=== PATIENT | female | born 1985 | race Caucasian/White ===

== ENCOUNTER 2017-01-22 19:24 | Emergency (ER) | payer OTHER ==
[~2017-01-22] VITALS: Ht 175.3 cm; Wt 75.3 kg
[2017-01-22 19:26] VITALS: TEMP 36.7; Ht 175.3 cm; Wt 75.3 kg
[2017-01-22] MEDS ORDERED: SODIUM CHLORIDE 0.9% 1000ML 1,000 ML IV STA ×2 (19:45→21:43)
--- NOTE | 2017-01-22 19:58 | EMERGENCY ROOM VISIT NOTE ---
History Report prepared by Julian: Rigoberto Young Under the Supervision of: Dr. Lisbet Collins D.O. First contact with patient: 19:29 Chief Complaint: ABDOMINAL PAIN Stated Complaint: VOMTING,NAUSEA,LOWER ABD PAIN, DIZZY 19 WEEKS PREG History of Present Illness The patient is a 31 year old female who presents to the Emergency Room with complaints of worsening dizziness that began a week ago. She rates her discomfort as a 3/10 in severity. She admits that her dizziness is relieved with drinking water. The patient states that she also experienced right lower abdominal quadrant pain starting yesterday. She reports that her abdominal pain is worse with movement, dull, and radiates to her back. She reports that she called her nurse at her [employer] office who told her it was most likely due to ligament issues. The patient states that today her dizziness worsened and she also started to experience a near syncopal episode at 0900. She reports that this caused her to report to the ED. She states that she is currently 19.5 weeks and has been experiencing vomiting since her 6th week of . The patient states that her morning sickness is typically at night. She states that within the last week, her morning sickness has been in the morning, as well. The patient reports that she has been able to take her vitamins in the morning, but does not remember if she has taken her pill today. She reports that she believes her dizziness is due to dehydration since she has been vomiting every night. The patient reports that due to her vomiting, she has lost 15 pounds since her . The patient states that she has tried Unisom, B6, and miriam for her nausea, but denies any relief of symptoms. She reports that she was given Zofran, which did not relieve her symptoms, and then Diclegis. The patient states that the Diclegis causes fatigue , which causes her to only take it at night. She reports that if the Diclegis does not work, her [employer] suggests that she is hospitalized. The patient admits that this is her first . She states that her first ultrasound in January 31. The patient admits that she started to feel movement in the last week. She reports that her [employer] is at [facility]. The patient denies any vaginal bleeding or discharge, urinary symptoms, bowel issues, fevers, chills, cough, and cold symptoms. Source of History: patient Onset: 0900 Position: abdomen (RLQ) Symptom Intensity: 310 Timing: worsening Modifying Factors (Relieving): drinking Associated Symptoms: + nausea, + vomiting, + abdominal pain, + back pain, No fevers, No chills, No cough, No urinary symptoms Review of Systems See HPI for pertinent positives & negatives. A total of 10 systems reviewed and were otherwise negative. Past Medical & Surgical Medical Problems: (1) 19 weeks gestation of Family History Patient reports no known family medical history. Social History Smoking Status: Never Smoker Smokeless Tobacco Use: No Alcohol Use: none Drug Use: none Marital Status: Housing Status: lives with significant other Occupation Status: employed Current/Historical Medications Scheduled Metoclopramide Hcl (Reglan), 10 MG PO Q8 Multivit/Min/Iron/Fol Ac/Pren ( Vitamin), 1 TAB PO DAILY Allergies Coded Allergies: No Known Allergies (Unverified , 01/22/17) Physical Exam Vital Signs Date Time Temp Pulse Resp B/P (MAP) Pulse Ox O2 Delivery O2 Flow Rate FiO2 01/22/17 23:23 82 20 113/66 98 01/22/17 22:04 70 18 107/60 99 Room Air 01/22/17 20:46 70 18 113/66 97 Room Air 01/22/17 19:26 36.7 79 16 120/86 98 Room Air Physical Exam GENERAL: alert, well appearing, well nourished, no distress, non-toxic EYE EXAM: normal conjunctiva, PERRL and EOM's grossly intact OROPHARYNX: no exudate, no erythema, lips, buccal mucosa, and tongue normal and mucous membranes are moist NECK: supple, no nuchal rigidity, no adenopathy, non-tender LUNGS: Clear to auscultation. Normal chest wall mechanics HEART: no murmurs, S1 normal and S2 normal ABDOMEN: abdomen soft, bilateral lower quadrant tenderness, right greater than left. Fundus palpable just below the umbilicus, normo-active bowel sounds, no masses, no rebound or guarding. BACK: Back is symmetrical on inspection and there is no deformity, no midline tenderness, no CVA tenderness. SKIN: no rashes and no bruising UPPER EXTREMITIES: upper extremities are grossly normal. LOWER EXTREMITIES: No pitting edema. NEURO EXAM: Normal sensorium, cranial nerves II-XII grossly intact, normal speech, no gross weakness of arms, no gross weakness of legs. Gross sensation intact. Medical Decision & Procedures ER Provider Diagnostic Interpretation: Radiology results have been interpreted by the radiologist and reviewed by me. ULTRASOUND LIMITED CLINICAL HISTORY: Generalized abdominal pain. Dizziness. Reportedly 19 weeks . COMPARISON STUDY: No priors. FINDINGS: Real-time, grayscale, and color Doppler sonography of the fetus and gravid uterus is performed. There is a single live intrauterine gestation with an estimated heart rate of 157 bpm. The femoral length measures 3.01 cm, corresponding to an estimated age of 19 weeks 2 days. The placenta appears posterolateral and is normal in appearance. The amniotic fluid index measures 17.15 cm. Presentation was variable during the examination. There is a 1.6 cm hypoechoic focus seen posterior to the placenta, possibly resenting a small fibroid. This did not change in appearance during the examination. IMPRESSION: 1. There is a single live uterine gestation with an estimated age of 19 weeks 2 days by femoral length measurement. 2. There is a 1.6 cm hypoechoic structure posterior to the placenta, possibly resulting a fibroid. Follow-up the patient's client services representative is recommended. 3. Note that this does not constitute a dedicated anatomic scan. Electronically signed by: Alin Chavez M.D. 01/22/2017 10:01 PM Dictated Date/Time: 01/22/2017 9:20 PM Laboratory Results 01/22/17 20:14 Red Blood Count 3.99, Mean Corpuscular Volume 89.0, Mean Corpuscular Hemoglobin 31.6, Mean Corpuscular Hemoglobin Concent 35.5, Mean Platelet Volume 10.3, Neutrophils (%) (Auto) 73.5, Lymphocytes (%) (Auto) 19.9, Monocytes (%) (Auto) 5.7, Eosinophils (%) (Auto) 0.3, Basophils (%) (Auto) 0.1, Neutrophils # (Auto) 8.58, Lymphocytes # (Auto) 2.32, Monocytes # (Auto) 0.67, Eosinophils # (Auto) 0.04, Basophils # (Auto) 0.01 01/22/17 20:14 Test 01/22/17 20:14 White Blood Count 11.68 K/uL (4.8-10.8) Red Blood Count 3.99 M/uL (4.2-5.4) Hemoglobin 12.6 g/dL (12.0-16.0) Hematocrit 35.5 % (37-47) Mean Corpuscular Volume 89.0 fL (80-100) Mean Corpuscular Hemoglobin 31.6 pg (25-34) Mean Corpuscular Hemoglobin Concent 35.5 g/dl (32-36) Platelet Count 242 K/uL (130-400) Mean Platelet Volume 10.3 fL (7.4-10.4) Neutrophils (%) (Auto) 73.5 % Lymphocytes (%) (Auto) 19.9 % Monocytes (%) (Auto) 5.7 % Eosinophils (%) (Auto) 0.3 % Basophils (%) (Auto) 0.1 % Neutrophils # (Auto) 8.58 K/uL (1.4-6.5) Lymphocytes # (Auto) 2.32 K/uL (1.2-3.4) Monocytes # (Auto) 0.67 K/uL (0.11-0.59) Eosinophils # (Auto) 0.04 K/uL (0-0.5) Basophils # (Auto) 0.01 K/uL (0-0.2) RDW Standard Deviation 41.8 fL (36.4-46.3) RDW Coefficient of Variation 13.0 % (11.5-14.5) Immature Granulocyte % (Auto) 0.5 % Immature Granulocyte # (Auto) 0.06 K/uL (0.00-0.02) Urine Color DK YELLOW Urine Appearance CLOUDY (CLEAR) Urine pH 5.0 (4.5-7.5) Urine Specific [place] 1.035 (1.000-1.030) Urine Protein TRACE (NEG) Urine Glucose (UA) NEG (NEG) Urine Ketones 1+ (NEG) Urine Occult Blood NEG (NEG) Urine Nitrite NEG (NEG) Urine Bilirubin NEG (NEG) Urine Urobilinogen NEG (NEG) Urine Leukocyte Esterase MODERATE (NEG) Urine WBC (Auto) >30 /hpf (0-5) Urine RBC (Auto) 10-30 /hpf (0-4) Urine Hyaline Casts (Auto) 0 /lpf (0-5) Urine Epithelial Cells (Auto) >30 /lpf (0-5) Urine Bacteria (Auto) 1+ (NEG) Urine Crystals CALCIUM OXALATE (NONE Urine Pathogenic Casts /lpf (0) Anion Gap 9.0 mmol/L (3-11) Est Creatinine Clear Calc Drug Dose 121.8 ml/min Estimated GFR () 133.8 Estimated GFR (Non- 115.5 BUN/Creatinine Ratio 13.0 (10-20) Calcium Level 9.6 mg/dl (8.5-10.1) Magnesium Level 2.0 mg/dl (1.8-2.4) Total Bilirubin 0.4 mg/dl (0.2-1) Aspartate Amino Transf (AST/SGOT) 16 U/L (15-37) Alanine Aminotransferase (ALT/SGPT) 24 U/L (12-78) Alkaline Phosphatase 49 U/L (45-117) Total Protein 7.4 gm/dl (6.4-8.2) Albumin 3.3 gm/dl (3.4-5.0) Globulin 4.1 gm/dl (2.5-4.0) Albumin/Globulin Ratio 0.8 (0.9-2) Date/Time Source Procedure Growth Status 01/22/17 20:14 Urine , Clean Catch Urine Culture - Final THREE TYPES OF ORGANISMS PRESENT, ALL... Complete Laboratory results per my review. Medications Administered Medications (Trade) Dose Ordered Sig/Emily Route Start Time Stop Time Status Last Admin Dose Admin Sodium Chloride 1,000 ml @ 999 mls/hr Q1H1M STAT IV 01/22/17 19:45 01/22/17 20:45 DC 01/22/17 20:15 999 MLS/HR Metoclopramide HCl (Reglan Inj) 10 mg NOW STAT IV 01/22/17 20:10 01/22/17 20:11 DC 01/22/17 20:24 10 MG Diphenhydramine HCl (Benadryl Inj) 12.5 mg NOW STAT IV 01/22/17 20:10 01/22/17 20:11 DC 01/22/17 20:24 12.5 MG Sodium Chloride 1,000 ml @ 999 mls/hr Q1H1M STAT IV 01/22/17 21:43 01/22/17 22:43 DC 01/22/17 22:03 999 MLS/HR ED Course 7: The patient was evaluated in room B05. A complete history and physical exam was performed. 1944: Ordered Sodium Chloride 1000 ml @ 999 mls/hr IV. 2009: Ordered Benadryl Injection 12.5 mg IV, Reglan Injection 10 mg IV. 2142: Ordered Sodium Chloride 1000 ml @ 999 mls/hr IV. 2204: I reevaluated the patient and she reports she is feeling better. She requested food. Her fluids are hanging. 2241: I reevaluated the patient and she is feeling better. She is at the end of her second liter. 2300: I reevaluated the patient and she feels better. She at a whole sandwich. I discussed her results and treatment plan. She agrees to the plan. The patient is ready for discharge. Medical Decision The differential diagnosis includes etiologies such as: dehydration, hyperemesis gravidum, gastroenteritis, UTI, appendicitis, biliary colic, gastritis, and GERD. Pt markedly improved with IVF here, tolerated po. Mild leukocytosis likely related to , doubt occult infectious etiology. Urine sent for culture , suboptimal specimen and no symptoms. Lower abd pain b/l likely related to ligament stretching with , low suspicion for appy, colitis, diverticulitis, stone. Pain intermittent and not consistent with other etiology. Discussed with pt all results, f/u with book agent, anti-emetics, hydration, sx to watch/return for, she verbalized understanding and was agreeable with plan. Medication Reconcilliation Current Medication List: was personally reviewed by me Blood Pressure Screening Patient's blood pressure: Normal blood pressure Impression Primary Impression: 19 weeks gestation of Additional Impressions: Nausea & vomiting Dehydration Scribe Attestation The scribe's documentation has been prepared under my direction and personally reviewed by me in its entirety. I confirm that the note above accurately reflects all work, treatment, procedures, and medical decision making performed by me. Departure Information Dispostion Home / Self-Care Prescriptions Metoclopramide Hcl (REGLAN) 10 Mg Tab 10 MG PO Q8 for Nausea, #30 TAB Prov: Lisbet Collins DO 01/22/17 Forms Call Back Authorization, HOME CARE DOCUMENTATION FORM, IMPORTANT VISIT INFORMATION Patient Instructions My [facility] Additional Instructions Please use the nausea medicine as needed up to every 6 hours. Please try to stay well hydrated. Please follow-up with your book agent. If you have any recurrent vomiting, develop fevers, diarrhea, worsening abdominal pain, vaginal bleeding or discharge, or you have any other new or concerning symptoms, please return to the emergency room. Problem Qualifiers Additional Impressions: Nausea & vomiting Vomiting type: unspecified Vomiting Intractability: unspecified Qualified Codes: R11.2 - Nausea with vomiting, unspecified
[2017-01-22] MEDS ORDERED: METOCLOPRAMIDE HCL INJ 5 MG/ML 2 ML VIAL IV STA (20:10)
[2017-01-22] MEDS ORDERED: DiphenhydrAMINE HCL 50 MG/ML VIAL IV STA (20:10)
[2017-01-22] MEDS ORDERED: PRENTAB26 PO (20:20)
[2017-01-22 20:28] LABS: HEMATOCRIT 35.5 % (37-47); MEAN CORPUSCULAR HEMOGLOBIN 31.6 pg (25-34); MEAN CORPUSCULAR HGB CONC 35.5 g/dl (32-36); MEAN PLATELET VOLUME 10.3 fL (7.4-10.4); PLATELET COUNT 242 K/uL (130-400); RED BLOOD COUNT 3.99 M/uL (4.2-5.4); WHITE BLOOD COUNT 11.68 K/uL (4.8-10.8)
[2017-01-22 20:32] LABS: URINE APPEARANCE CLOUDY (CLEAR); URINE BILIRUBIN NEG (NEG); URINE COLOR DK YELLOW; URINE EPITHELIAL CELL AUTO >30 /lpf (0-5); URINE NITRITE NEG (NEG); URINE SPECIFIC GRAVITY 1.035 (1.000-1.030); UROBILINOGEN NEG (NEG); ZZUR CULT IF INDIC CLEAN CATCH YES
[2017-01-22 20:35] LABS: MANUAL MICROSCOPIC REQUIRED? NO; REVIEW REQ? YES
[2017-01-22 20:48] LABS: CALCIUM 9.6 mg/dl (8.5-10.1); CREATININE 0.7 mg/dl (0.60-1.20); POTASSIUM 3.7 mmol/L (3.5-5.1)
[2017-01-22 20:51] LABS: ALB/GLOB RATIO 0.8 (0.9-2)
[2017-01-22 20:52] LABS: BASO % 0.1 %; BASO ABS # 0.01 K/uL (0-0.2); COMPLETE YES; EOS % 0.3 %; IG% 0.5 %; LYMPH % 19.9 %; LYMPH ABS # 2.32 K/uL (1.2-3.4); MONO % 5.7 %; NEUT % 73.5 %
--- NOTE | 2017-01-22 22:02 | DIAGNOSTIC IMAGING REPORT ---
ULTRASOUND LIMITED CLINICAL HISTORY: Generalized abdominal pain. Dizziness. Reportedly 19 weeks . COMPARISON STUDY: No priors. FINDINGS: Real-time, grayscale, and color Doppler sonography of the fetus and gravid uterus is performed. There is a single live intrauterine gestation with an estimated heart rate of 157 bpm. The femoral length measures 3.01 cm, corresponding to an estimated age of 19 weeks 2 days. The placenta appears posterolateral and is normal in appearance. The amniotic fluid index measures 17.15 cm. Presentation was variable during the examination. There is a 1.6 cm hypoechoic focus seen posterior to the placenta, possibly resenting a small fibroid. This did not change in appearance during the examination. IMPRESSION: 1. There is a single live uterine gestation with an estimated age of 19 weeks 2 days by femoral length measurement. 2. There is a 1.6 cm hypoechoic structure posterior to the placenta, possibly resulting a fibroid. Follow-up the patient's lbd teacher is recommended. 3. Note that this does not constitute a dedicated anatomic scan. Electronically signed by: Alin Chavez M.D. 01/22/2017 10:01 PM Dictated Date/Time: 01/22/2017 9:20 PM
[2017-01-22] MEDS ORDERED: METO1TAB55 PO (23:15)
[2017-01-22 23:23] VITALS: BP 113/66; PULSE 82; O2SAT 98
== END 2017-01-22 23:24 | disposition home or self-care (01) ==
LOC: C.EDB 19:26
DX: O21.9 Vomiting of pregnancy, unspecified (principal); O26.92 Pregnancy related conditions, unspecified, second trimester; Z3A.19 19 weeks gestation of pregnancy; E86.0 Dehydration; Z79.899 Other long term (current) drug therapy